=== PATIENT | female | born 1990 | race Caucasian/White ===

== ENCOUNTER 2017-09-05 12:45 | Inpatient (IN) | payer MEDICAID, SELFPAY ==
[2017-09-05 12:45] VITALS: BP 118/74; PULSE 129; RESP 16; TEMP 36.7; O2SAT 96; BMI 21.2
[2017-09-05] MEDS: LORazepam 2 MG/ML Syringe 0.5 MG IV (13:20)
[2017-09-05] MEDS: 0.9% Normal Saline 1,000 ML 1000 ML IV (13:20)
[2017-09-05] MEDS: Ondansetron 4 MG/2 ML Vial IV (13:20)
[2017-09-05 13:42] LABS: Absolute Lymphocyte Count 1.17 X10^3/ul (0.83-4.51); Absolute Neutrophil Count 7.4 X10^3/uL (2.0-7.7); Basophil# 0.01 X10^3/uL; Basophil% 0.1 % (0-1); Hematocrit 49.6 % (37-47); Hemoglobin 16.6 g/dl (12.0-15.0); Lymphocyte # 1.17 X10^3/ul (4.0); Lymphocyte % 12.4 % (19-41); Mean Corp Hgb Conc 33.5 g/gl (32-36); Mean Corpuscular Hgb 28.2 pg (27.0-32.0); Mean Corpuscular Volume 84.2 fL (81-99); Mean Platelet Vol. 10.4 fl (6.2-12.0); Monocyte# 0.87 X10^3/uL; Monocyte% 9.2 % (0-10); Neutrophil # 7.41 X10^3/uL (2.7-7.7); Neutrophil % 78.2 % (47-70); Platelet Count 345 K/mm3 (150-450); RBC Distribution Width CV 12.9 % (11.6-14.6); RBC Distribution Width SD 39.4 fl (35.1-43.9); Red Blood Count 5.89 M/mm3 (4.2-5.4); White Blood Count 9.5 K/mm3 (4.4-11.0)
[2017-09-05 13:47] LABS: POSITIVE COUNT NO; POSITIVE DIFFERENTIAL NO; POSITIVE MORPHOLOGY NO
[2017-09-05 13:57] LABS: BUN 28 mg/dL (7-18); Estimated Creatinine Clearance 49.49 ml/min; Glucose 135 mg/dL (74-106)
[2017-09-05 13:58] LABS: AST(SGOT) 12 U/L (15-37); Alanine Aminotransfer ALT/SGPT 21 U/L (13-56); Albumin, Serum 5.4 g/dL (3.2-5.0); Alkaline Phosphatase 85 U/L (45-117); Anion Gap 12 (5-15); Bilirubin, Direct 0.18 mg/dL (0.00-0.30); Calcium,Total 10.5 mg/dL (8.5-10.1); Chloride 99 mmol/L (98-107); EST Glomerular Filtration Rate 47 mL/min (>60); Est Glom Filt Rate - Afr Amer 57 mL/min (>60); Globulin 4.4 g/dL (2.2-4.2); Potassium 3.4 mmol/L (3.5-5.1); Protein, Total 9.8 g/dL (6.4-8.2); Sodium Level 142 mmol/L (136-145)
--- NOTE | 2017-09-05 14:00 | ED.DCSUM_ITS ---
- ER Visit Summary Date of Service: 09/05/17 Chief Complaint: Withdrawal from opiates, requesting detox History of Present Illness: The patient is a 27 F with a history of heroin and narcotic abuse. Patient reports last 3 years she has used heroin. She describes snorting the heroin but no injection. She does use daily. Prior to heroin use she had used Vicodin and Percocet for 2 years. Patient states her last drug use was 4 days ago. She is requesting help with detox complaining of generalized body aches, shaking, nausea, and vomiting. She is restless and unable to sleep. Patient has made multiple phone calls to try to get onto Suboxone. She is an appointment with [facility] in 2 weeks. Physical Examination: Blood pressure is 118/74, temperature 98.1, heart rate 129 , respiratory rate 16, pulse ox 96% on room air. Head neck examination is grossly unremarkable. Heart is tachycardic and regular. Lung sounds are clear. Abdomen is soft with no focal tenderness. She has hypoactive bowel sounds. Neuro exam does reveal mild tremor noted to her hands. She is anxious and restless. Test Results: CBC was normal white count with a hemoglobin of 16.6. Chemistry studies were potassium 3.4 with a BUN of 28 creatinine 1.40. test is negative. LFTs are normal. Emergency Department Course and Treatment: CINA score is calculated after my initial evaluation. Initial score is 17. Patient is given IV fluids, Zofran, and 0.5 mg of IV Ativan. On repeat evaluation patient's resting calmly. Nausea is improved but she is still nauseated. She is given a dose of Phenergan. Hospitalist was contacted for admission. Treatment Plan: [] Disposition: Admit Impression: Heroin withdrawal This note was generated with [employer] dictation software. It may contain incorrect words, spelling, and punctuation that were not noted in review of the chart prior to signing ED Disposition - Plan for ED Patient: Chief Complaint: Subst Abuse
[2017-09-05 14:17] LABS: Pregnancy, Serum, hCG Quali. NEGATIVE Negative (0-9 Nonpreg)
[2017-09-05 15:59] VITALS: BP 132/93; PULSE 99; RESP 18; O2SAT 98
[2017-09-05] MEDS: proMETHazine 25 MG/ML Syringe 6.25 MG IV (15:59)
[2017-09-05] MEDS: 0.9% Normal Saline 1,000 ML 150 ML IV (15:59)
[2017-09-05 16:49] VITALS: BMI 19.5
[2017-09-05 16:51] VITALS: BP 139/80; PULSE 102; RESP 18; TEMP 36.8; O2SAT 100
[2017-09-05 16:55] VITALS: BMI 19.5
[2017-09-05] MEDS: Methocarbamol 750 MG Tablet PO (17:01)
[2017-09-05] MEDS: cloNIDine HCl 0.1 MG Tablet PO (17:01)
[2017-09-05] MEDS: Buprenorphine HCl 2 MG TAB.SUBL SL (17:01)
[2017-09-05] MEDS: Pramipexole Di-HCl 0.25 MG Tablet PO (17:01)
[2017-09-05] MEDS: Ibuprofen 600 MG Tablet PO (17:01)
[2017-09-05 17:05] VITALS: BP 139/80; PULSE 102; RESP 18; TEMP 36.8
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
[2017-09-05 22:10] VITALS: BP 126/73; PULSE 97; RESP 20; TEMP 37.3; O2SAT 97
[2017-09-05] MEDS: Ondansetron ODT 4 MG Tablet PO (22:25)
[2017-09-05] MEDS: Acetaminophen 500 MG Tablet PO (22:25)
[2017-09-05] MEDS: chlordiazePOXIDE 25 MG Capsule PO (22:25)
--- NOTE | 2017-09-05 22:50 | NURSING ---
meal provided to pt
[2017-09-06] VITALS (9 sets, daily range): BP systolic 102–128; BP diastolic 63–78; PULSE 76–98; RESP 15–20; TEMP 36.7–36.9; O2SAT 100
[2017-09-06] MEDS: Methocarbamol 750 MG Tablet PO ×2 (02:07→23:40)
[2017-09-06] MEDS: Buprenorphine HCl 2 MG TAB.SUBL SL ×3 (02:07→17:25)
[2017-09-06] MEDS: Ibuprofen 600 MG Tablet PO (02:07)
[2017-09-06] MEDS: Ondansetron ODT 4 MG Tablet PO (10:07)
[2017-09-06] MEDS: 0.9% Normal Saline 1,000 ML 150 ML IV ×2 (11:03→18:49)
[2017-09-06] MEDS: 0.9% NaCl Peripheral Flush Adult/Peds IV (11:54)
[2017-09-06] MEDS: LORazepam 2 MG/ML Syringe 0.5 MG IV (11:54)
--- NOTE | 2017-09-06 12:15 | PCM.PROGNOTE ---
Patient Problems: Active and Suspected Problems Opiate withdrawal (Acute) Subjective: Patient seen and examined. States she has been vomiting all morning and is unable to keep anything down. Complains of insomnia and states she has not slept more than a few hours in 4 days. Complains of anxiety and general malaise. Denies diarrhea, abdominal cramping. Denies other complaints. - Physical Exam General: Alert, Oriented x3, Cooperative HEENT: Atraumatic, PERRLA, EOMI, Normocephalic Neck: Supple, No JVD, Negative Carotid Bruits Lungs: Clear to auscultation, Normal air movement Cardiovascular: Regular rate, Regular Rhythm, Normal S1, Normal S2, No murmurs Abdomen: Bowel Sounds Present, Soft, Non Tender Extremities: No clubbing, No cyanosis, No edema, Capillary Refill Less than 3 Seconds Skin: No rashes, No breakdown Musculoskeletal: No Tenderness to Palpation of Joints or Extremities Neurological: Cranial nerves II-XII grossly intact, Neuro grossly intact Psych/Mental Status: Normal Affect, Appropriate Vital Signs Temp Pulse Resp BP Pulse Ox 98.5 F 91 18 114/68 100 09/06/17 10:09/06/17 10:09/06/17 10:09/06/17 10:09/06/17 08:43 Oxygen Delivery Method Room Air Weight: 49.895 kg Body Mass Index (BMI) 19.5 Intake and Output for Last 24 Hours 09/04/17 09/05/17 09/06/17 23:59 23:59 23:59 Intake Total 2813 / 2813 Output Total 500 / 500 Balance 2313 / 2313 Medical Necessity - Tobacco Use Smoking Status: Never smoker Assessment/Plan Active and Suspected Problems Opiate withdrawal (Acute) 1. Acute opiate withdrawal-medical stabilization per protocol. Continue IV fluids given continued emesis. Continue Zofran as needed for nausea. Increase Librium to 50 mg nightly to help with sleep. Will consult Dr. Darnell Thursday to assess if patient can receive Suboxone earlier than previously scheduled. 2. Acute kidney injury-secondary to dehydration from nausea, vomiting. IV fluids as noted above. Monitor BMP. 3. Asthma-no acute exacerbation. DVT prophylaxis-not indicated due to low risk. This patient was seen by BETTY Lira under the supervision of Dr. Pardo.
[2017-09-06] MEDS: chlordiazePOXIDE 25 MG Capsule 50 MG PO (21:24)
[2017-09-07] MEDS: Buprenorphine HCl 2 MG TAB.SUBL SL ×3 (01:39→21:09)
[2017-09-07] MEDS: 0.9% Normal Saline 1,000 ML 150 ML IV (01:39)
[2017-09-07 01:40] VITALS: BP 111/71; PULSE 76; RESP 15; TEMP 36.4
[2017-09-07] MEDS: cloNIDine HCl 0.1 MG Tablet PO ×3 (01:53→19:56)
[2017-09-07 04:00] VITALS: RESP 15
[2017-09-07 06:00] VITALS: BP 107/67; PULSE 77; RESP 15; TEMP 36.4
[2017-09-07 06:26] LABS: Anion Gap 7 (5-15); BUN 11 mg/dL (7-18); Calcium,Total 7.9 mg/dL (8.5-10.1); Chloride 108 mmol/L (98-107); Creatinine, Serum 0.69 mg/dL (0.55-1.02); EST Glomerular Filtration Rate 108 mL/min (>60); Est Glom Filt Rate - Afr Amer 130 mL/min (>60); Estimated Creatinine Clearance 95.61 ml/min; Glucose 90 mg/dL (74-106); Potassium 4.6 mmol/L (3.5-5.1); Sodium Level 142 mmol/L (136-145)
[2017-09-07 09:17] VITALS: BP 108/67; PULSE 85; RESP 18; TEMP 36.7
[2017-09-07] MEDS: chlordiazePOXIDE 25 MG Capsule PO (09:21)
[2017-09-07] MEDS: Pramipexole Di-HCl 0.25 MG Tablet PO (09:21)
--- NOTE | 2017-09-07 09:47 | PCM.PROGNOTE ---
<Monse Holland - Last Filed: 09/07/17 09:50> Patient Problems: Active and Suspected Problems Opiate withdrawal (Acute) Subjective: Patient seen and examined. States nausea, vomiting has improved. Able to tolerate regular diet. States she is still not sleeping well and only sleeps a few hours at a time. Complains of diaphoresis this morning. Denies other complaints. - Physical Exam General: Alert, Oriented x3, Cooperative, No apparent distress HEENT: Atraumatic, PERRLA, EOMI, Normocephalic Neck: Supple, No JVD, Negative Carotid Bruits Lungs: Clear to auscultation, Normal air movement Cardiovascular: Regular rate, Regular Rhythm, Normal S1, Normal S2, No murmurs Abdomen: Bowel Sounds Present, Soft, Non Tender, Non-Distended Extremities: No clubbing, No cyanosis, No edema, Capillary Refill Less than 3 Seconds Skin: No rashes, No breakdown Musculoskeletal: No Tenderness to Palpation of Joints or Extremities Neurological: Cranial nerves II-XII grossly intact, Neuro grossly intact Psych/Mental Status: Normal Affect, Appropriate Vital Signs Temp Pulse Resp BP Pulse Ox 98.1 F 85 18 108/67 100 09/07/17 09:17 09/07/17 09:17 09/07/17 09:17 09/07/17 09:17 09/06/17 15:01 Oxygen Delivery Method Room Air Weight: 49.895 kg Body Mass Index (BMI) 19.5 Intake and Output for Last 24 Hours 09/05/17 09/06/17 09/07/17 23:59 23:59 23:59 Intake Total 3780 / 3780 1250 / 1250 Output Total 500 / 500 Balance 3280 / 3280 1250 / 1250 Laboratory Tests Past 24 Hrs 09/07/17 05:40 Sodium 142 Potassium 4.6 Chloride 108 H Carbon Dioxide 27.0 Anion Gap 7 BUN 11 Creatinine 0.69 Estim Creat Clear Calc 95.61 Est GFR (MDRD) Af Amer 130 Est GFR (MDRD) Non-Af 108 BUN/Creatinine Ratio 16.0 Glucose 90 Calcium 7.9 L Medical Necessity - Tobacco Use Smoking Status: Never smoker Assessment/Plan Active and Suspected Problems Opiate withdrawal (Acute) 1. Acute opiate withdrawal-medical stabilization per protocol with Subutex and Librium as needed. Continue Zofran as needed for nausea. Patient is stable at this time. She wishes to receive Suboxone at discharge. Further follow-up by [facility]. 2. Acute kidney injury-secondary to dehydration from nausea, vomiting. Resolved with IV fluids. Fluids discontinued. 3. Asthma-no acute exacerbation. DVT prophylaxis-not indicated due to low risk. This patient was seen by BETTY Lira under the supervision of Dr. Dr. Curry. <Tracey Curry - Last Filed: 09/07/17 13:51> - Physical Exam Vital Signs Temp Pulse Resp BP Pulse Ox 98.3 F 89 18 99/52 L 100 09/07/17 13:21 09/07/17 13:21 09/07/17 13:21 09/07/17 13:21 09/06/17 15:01 Oxygen Delivery Method Room Air Weight: 49.895 kg Body Mass Index (BMI) 19.5 Intake and Output for Last 24 Hours 09/05/17 09/06/17 09/07/17 23:59 23:59 23:59 Intake Total 3780 / 3780 1250 / 1250 Output Total 500 / 500 Balance 3280 / 3280 1250 / 1250 Laboratory Tests Past 24 Hrs 09/07/17 05:40 Sodium 142 Potassium 4.6 Chloride 108 H Carbon Dioxide 27.0 Anion Gap 7 BUN 11 Creatinine 0.69 Estim Creat Clear Calc 95.61 Est GFR (MDRD) Af Amer 130 Est GFR (MDRD) Non-Af 108 BUN/Creatinine Ratio 16.0 Glucose 90 Calcium 7.9 L Assessment/Plan Patient was seen and examined independently. Agree with the interval history, physical exam, and assessment and plan as documented above by the nurse practitioner, Monse Holland. Patient feels improved. Still has some nausea but no vomiting. Complains of lack of sleep. Denies any fever or chills or tremors or diarrhea. Feels some hot and cold flashes. Vitals reviewed stable. Physical exam is unremarkable as above. Labs reviewed and showed resolved OBED We will continue management per the [facility] protocol. Code Visit Inpatient E&M: 20329 Subs Hosp L2
[2017-09-07 13:21] VITALS: BP 99/52; PULSE 89; RESP 18; TEMP 36.8
[2017-09-07 19:54] VITALS: BP 104/67; PULSE 101; RESP 16; TEMP 36.6
[2017-09-08] MEDS: Pramipexole Di-HCl 0.25 MG Tablet PO (00:48)
[2017-09-08] MEDS: chlordiazePOXIDE 25 MG Capsule PO (00:48)
[2017-09-08 00:55] VITALS: BP 95/62; PULSE 66; RESP 16; TEMP 36.6
[2017-09-08 05:30] VITALS: BP 108/62; PULSE 93; RESP 16; TEMP 36.6
[2017-09-08] MEDS: cloNIDine HCl 0.1 MG Tablet PO (05:31)
[2017-09-08] MEDS: Ibuprofen 600 MG Tablet PO (05:32)
--- NOTE | 2017-09-08 08:16 | PCM.DC ---
- Discharge Diagnoses Current Active Problems: Current Active and Chronic Problems Opiate withdrawal (Acute) Asthma (Chronic) Anxiety (Chronic) Depression (Chronic) Reason(s) for Visit for Discharge Instructions: Opiate withdrawal You will use the following diet at home:: Regular Your food should be the consistency of: Regular Your liquids should be the consistency of: Regular/Thin Discharge Activity: Return to Normal Activity Allergies/Adverse Reactions: Allergies No Known Allergies Allergy (Verified 11/09/15 18:34) Medications to take at Discharge Albuterol Inhaler [Ventolin Hfa] 1 - 2 puff INHALATION Q4H PRN PRN #1 inhaler 11/09/15 Primary Care Physician: Mir Leonard MD [Primary Care Provider] - Please follow up with your Primary Care Physician in: within 2 weeks Proposed Discharge Date: 09/08/17
--- NOTE | 2017-09-08 09:10 | PCM.DC.SUM ---
Discharge Date and Diagnosis Date of Admission: 09/05/17 Date of Discharge: 09/08/17 - Primary Discharge Diagnosis Active and Suspected Problems 1. Acute opiate withdrawal 2. Acute kidney injury-secondary to nausea, vomiting as a result of #1 - Secondary Discharge Diagnosis Chronic Problems Asthma (Chronic) Anxiety (Chronic) Depression (Chronic) Hospital Course and Treatment Operations: None Procedures: None Summary of Care Provided: Patient is a 27-year-old female admitted 09/05/2017 due to opiate withdrawal. Her past medical history includes asthma, anxiety, depression. 1. Acute opiate withdrawal-medical stabilization per protocol with Subutex and Librium as needed. Patient is stable. Plan for outpatient counseling and Suboxone as outpatient at discharge. 2. Acute kidney injury-secondary to dehydration from nausea, vomiting. Resolved with IV fluids. 3. Asthma-no acute exacerbation. General: Alert, Oriented x3, Cooperative, No apparent distress HEENT: Atraumatic, PERRLA, EOMI, Normocephalic Neck: Supple, No JVD, Negative Carotid Bruits Lungs: Clear to auscultation, Normal air movement Cardiovascular: Regular rate, Regular Rhythm, Normal S1, Normal S2, No murmurs Abdomen: Bowel Sounds Present, Soft, Non Tender, Non-Distended Extremities: No clubbing, No cyanosis, No edema, Capillary Refill Less than 3 Seconds Skin: No rashes, No breakdown Musculoskeletal: No Tenderness to Palpation of Joints or Extremities Neurological: Cranial nerves II-XII grossly intact, Neuro grossly intact Psych/Mental Status: Normal Affect, Appropriate Patient seen and examined prior to discharge. Physical assessment as noted above. Patient is stable for discharge with continued outpatient follow-up. This patient was seen by BETTY Lira under the supervision of Dr. Dr. Curry. Discharge Diet: No Restrictions Discharge Activity: Return to Normal Activity Home Medications: Medications to take at Discharge Albuterol Inhaler [Ventolin Hfa] 1 - 2 puff INHALATION Q4H PRN PRN #1 inhaler 11/09/15 Primary Care Physician: Mir Leonard MD [Primary Care Provider] - Please follow up with your Primary Care Physician in: within 2 weeks Disposition: Home Minutes spent on discharge:: 35 Patient Condition:: Stable Medical Necessity - Tobacco Use Smoking Status: Never smoker Meaningful Use Info Meaningful Use Diagnoses (Choose all that apply): None applicable
[2017-09-08 09:55] VITALS: BP 85/51; PULSE 72; RESP 18; TEMP 36.4
[2017-09-08] MEDS: Buprenorphine HCl 2 MG TAB.SUBL SL (09:57)
== END 2017-09-08 14:11 | disposition home or self-care (01) | DRG 434 ==
LOC: ED 13:57 → MS2 16:01
PROVIDERS: Nurse Practitioner Family; Admitting Provider Internal Medicine; Emergency Provider Emergency Medicine; Family Provider Family Medicine; PCP Family Medicine; Visit Provider Internal Medicine
DX: F11.23 Opioid dependence with withdrawal (principal); E86.0 Dehydration; N17.9 Acute kidney failure, unspecified; F32.9 Major depressive disorder, single episode, unspecified; R11.2 Nausea with vomiting, unspecified; F41.9 Anxiety disorder, unspecified; J45.909 Unspecified asthma, uncomplicated; Z87.891 Personal history of nicotine dependence
CPT/HCPCS: 36415; 80048; 80076; 84703; 85025; 99284; J7030; A4216; J2405

== ENCOUNTER 2018-05-29 10:17 | Observation (INO) | payer MEDICAID, SELFPAY ==
[2018-05-29 10:19] VITALS: BP 139/86; PULSE 89; RESP 16; TEMP 36.4; O2SAT 99; BMI 20.5
[2018-05-29] MEDS: 0.9% Normal Saline 1,000 ML 999 ML IV (10:56)
[2018-05-29] MEDS: proMETHazine 25 MG/ML Syringe 12.5 MG IV (10:57)
[2018-05-29 11:14] LABS: Absolute Lymphocyte Count 1.94 X10^3/ul (0.83-4.51); Absolute Neutrophil Count 4.5 X10^3/uL (2.0-7.7); Basophil# 0.02 X10^3/uL; Basophil% 0.3 % (0-1); Eosinophil# 0.03 X10^3/uL; Eosinophils% 0.4 % (0-5); Hematocrit 40.1 % (37-47); Hemoglobin 12.9 g/dl (12.0-15.0); Lymphocyte # 1.94 X10^3/ul (4.0); Lymphocyte % 26.9 % (19-41); Mean Corp Hgb Conc 32.2 g/gl (32-36); Mean Corpuscular Hgb 27.9 pg (27.0-32.0); Mean Corpuscular Volume 86.6 fL (81-99); Mean Platelet Vol. 10.1 fl (6.2-12.0); Monocyte# 0.69 X10^3/uL; Monocyte% 9.6 % (0-10); Neutrophil # 4.52 X10^3/uL (2.7-7.7); Neutrophil % 62.7 % (47-70); Platelet Count 253 K/mm3 (150-450); RBC Distribution Width CV 13.3 % (11.6-14.6); RBC Distribution Width SD 42.3 fl (35.1-43.9); Red Blood Count 4.63 M/mm3 (4.2-5.4); White Blood Count 7.2 K/mm3 (4.4-11.0)
[2018-05-29 11:15] LABS: POSITIVE COUNT NO; POSITIVE DIFFERENTIAL NO; POSITIVE MORPHOLOGY NO
[2018-05-29] MEDS: LORazepam 2 MG/ML Syringe 1 MG IV (11:23)
[2018-05-29 11:29] LABS: Amphetamine Urine VISTA NEGATIVE (<1000 ng/mL); Barbiturate Urine VISTA NEGATIVE (< 200 ng/mL); Benzodiazepine Urine VISTA NEGATIVE (< 200 ng/mL); Cocaine Urine VISTA NEGATIVE (< 300 ng/mL); Ecstacy Urine VISTA NEGATIVE (< 500 ng/mL); Methadone Urine VISTA NEGATIVE (< 300 ng/mL); PCP Urine VISTA NEGATIVE (< 25 ng/mL); THC Urine VISTA NEGATIVE (< 50 ng/mL); Vista UDS pH Range 6
[2018-05-29 11:29] LABS: Anion Gap 8 (5-15); BUN 10 mg/dL (7-18); BUN/Creat Ratio 12.9 RATIO (10-20); Calcium,Total 8.3 mg/dL (8.5-10.1); Chloride 108 mmol/L (98-107); Creatinine, Serum 0.78 mg/dL (0.55-1.02); EST Glomerular Filtration Rate 93 mL/min (>60); Est Glom Filt Rate - Afr Amer 113 mL/min (>60); Estimated Creatinine Clearance 91.45 ml/min; Glucose 87 mg/dL (74-106); Sodium Level 144 mmol/L (136-145)
[2018-05-29 11:37] LABS: Pregnancy, Serum, hCG Quali. NEGATIVE Negative (0-9 Nonpreg)
--- NOTE | 2018-05-29 12:45 | ED.VISSUMM ---
- ER Visit Summary Date of Service: 05/29/18 Chief Complaint: [Heroin withdrawal] History of Present Illness: The patient is a 28 F [presents the emergency department with complaint of heroin withdrawal. Patient states she last used yesterday. Patient would like to be admitted for detox. Patient spoke to [facility] and they told her to come to the emergency department to be admitted. Patient has gone through a 3-day in program here about 3 months ago. Patient complains currently of chills and vomiting throughout the night. Patient complains of body aches and feeling shaky. Patient had hot and cold flashes.] Physical Examination: HEENT-PERRLA, EOMI. Cranial nerves II through XII grossly intact. TMs clear. Mucous membranes moist. No adenopathy. Cardiovascular-regular rate and rhythm without murmur or ectopy Lungs-clear to auscultation, chest wall stable without crepitus or subcu emphysema Abdomen-normoactive bowel sounds, soft, nontender, no rebound or rigidity, no peritoneal signs. Extremities-intact ?4, normal range of motion, normal pulses, atraumatic] Test Results: [CBC with differential count 7.2, hemoglobin 12.9, hematocrit 40, placed 253. Chemistry is unremarkable other than a slightly depressed potassium of 3.0 for which I did write her for 40 mEq of potassium chloride p.o. Tox screen was negative and alcohol was 7.0. Patient had a score of 22 on the CIWA AR score.] Emergency Department Course and Treatment: [Case discussed with hospitalist will evaluate patient for admission] Treatment Plan: [Admit for detox from heroin] Disposition: [Admit] Impression: [Heroin withdrawal] This note was generated with [employer] dictation software. It may contain incorrect words, spelling, and punctuation that were not noted in review of the chart prior to signing ED Disposition - Plan for ED Patient: Chief Complaint: Substance Abuse Referrals: Mir Leonard MD [Primary Care Provider] -
--- NOTE | 2018-05-29 12:47 | PCM.HP.STD ---
Problem List (1) Opiate withdrawal Status: Acute (2) Anxiety Status: Chronic (3) Asthma Status: Chronic (4) Depression Status: Chronic History of Present Illness Date of Admission: 05/29/18 Chief Complaint: Heroin withdrawal symptoms The patient is a 28 year old F with history of chronic heroin use through snorting, last admission in August 2017, recurrent relapse came to ED with symptoms of withdrawal for 1 day. Patient lost to use was yesterday; which is 1/2-2 g daily. She denies IV use. After she was discharged in August, she was on Suboxone from outpatient rehab until October 2017 after she quit and relapsed. She stopped heroin in March and was sober until May 13 and again relapsed. Her withdrawal symptoms include feeling of anxiety, restlessness, hot and cold flashes, shivering, body aches and muscle pain and loose bowel movement. He also has nausea and vomiting. [] Past Medical History Past Medical History (Chronic Problems): Chronic Problems Asthma (Chronic) Anxiety (Chronic) Depression (Chronic) Allergies No Known Allergies Allergy (Verified 05/29/18 10:22) Home Medications: Ambulatory Orders Medication Instructions Recorded Albuterol Inhaler [Ventolin Hfa] 1 - 2 puff INHALATION Q4H PRN PRN 11/09/15 #1 inhaler Surgical History: - - Nasal repair surgery status post broken nose ?2. 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 Smoking Status: Current every day smoker - *Family History Maternal History Items: - - Depression, anxiety Paternal History Items: - - Depression, anxiety VTE Information - Inpt Only VTE Present on Admission: No VTE Mechan Device Prophylaxis: None Reason prophylaxis not ordered:: Procedure Not Indicated - Physical Exam General: Alert, Oriented x3, Cooperative HEENT: Atraumatic, PERRLA, EOMI, Normocephalic, - - Mild redness in the nostrils Neck: Supple, No JVD, Negative Carotid Bruits, - Lungs: Clear to auscultation, Normal air movement, No rhonchi, No wheeze, No rales Cardiovascular: Regular rate, Regular Rhythm, Normal S1, Normal S2, No murmurs Abdomen: Bowel Sounds Present, Soft, Non Tender, Non-Distended Extremities: No edema, Capillary Refill Less than 3 Seconds Skin: No rashes, No breakdown Musculoskeletal: No Tenderness to Palpation of Joints or Extremities, - - Mild muscle wasting Neurological: Cranial nerves II-XII grossly intact, Deep Tendon Reflexes 2+/4 and Symmetrical, Neuro grossly intact, Motor Exam 5/5 strength throughout, - Psych/Mental Status: Anxious, Depressed, Restless Vital Signs Temp Pulse Resp BP Pulse Ox 97.5 F L 89 16 139/86 H 99 05/29/18 10:19 05/29/18 10:19 05/29/18 10:19 05/29/18 10:19 05/29/18 10:19 Weight: 120 lb Body Mass Index (BMI) 20.5 Laboratory Tests Past 24 Hrs 05/29/18 05/29/18 05/29/18 10:50 10:55 10:55 WBC 7.2 RBC 4.63 Hgb 12.9 Hct 40.1 MCV 86.6 MCH 27.9 MCHC 32.2 RDW 13.3 RDW Differential 42.3 Plt Count 253 MPV 10.1 Immature Gran % (Auto) 0.100 Neut % (Auto) 62.7 Lymph % (Auto) 26.9 [place] % (Auto) 9.6 Eos % (Auto) 0.4 Baso % (Auto) 0.3 Absolute Neuts (auto) 4.5 Absolute Lymphs (auto) 1.94 Total Counted Not Reportable Sodium 144 Potassium 3.0 L Chloride 108 H Carbon Dioxide 28.0 Anion Gap 8 BUN 10 Creatinine 0.78 Estim Creat Clear Calc 91.45 Est GFR (MDRD) Af Amer 113 Est GFR (MDRD) Non-Af 93 BUN/Creatinine Ratio 12.9 Glucose 87 Calcium 8.3 L Magnesium Total Bilirubin Direct Bilirubin AST ALT Alkaline Phosphatase Total Protein Albumin Serum , Qual Urine Opiates Screen NEGATIVE Urine Methadone Screen NEGATIVE Ur Barbiturates Screen NEGATIVE Ur Phencyclidine Scrn NEGATIVE Ur Amphetamines Screen NEGATIVE U Methamphetamin-MDMA NEGATIVE U Benzodiazepines Scrn NEGATIVE Urine Cocaine Screen NEGATIVE U Cannabinoids Screen NEGATIVE Ur Drug Screen Comment Ethyl Alcohol 05/29/18 05/29/18 05/29/18 10:55 10:55 10:55 WBC RBC Hgb Hct MCV MCH MCHC RDW RDW Differential Plt Count MPV Immature Gran % (Auto) Neut % (Auto) Lymph % (Auto) [place] % (Auto) Eos % (Auto) Baso % (Auto) Absolute Neuts (auto) Absolute Lymphs (auto) Total Counted Sodium Potassium Chloride Carbon Dioxide Anion Gap BUN Creatinine Estim Creat Clear Calc Est GFR (MDRD) Af Amer Est GFR (MDRD) Non-Af BUN/Creatinine Ratio Glucose Calcium Magnesium Pending Total Bilirubin Pending Direct Bilirubin Pending AST Pending ALT Pending Alkaline Phosphatase Pending Total Protein Pending Albumin Pending Serum , Qual NEGATIVE Urine Opiates Screen Urine Methadone Screen Ur Barbiturates Screen Ur Phencyclidine Scrn Ur Amphetamines Screen U Methamphetamin-MDMA U Benzodiazepines Scrn Urine Cocaine Screen U Cannabinoids Screen Ur Drug Screen Comment Ethyl Alcohol 7.0 Assessment/Plan All Active Problems Opiate withdrawal (Acute) The patient is a 28 year old F with history of chronic heroin use through snorting, last admission in August 2017, recurrent relapse came to ED with symptoms of withdrawal for 1 day. Patient lost to use was yesterday; which is 1/2-2 g daily. She denies IV use. After she was discharged in August, she was on Suboxone from outpatient rehab until October 2017 after she quit and relapsed. She stopped heroin in March and was sober until May 13 and again relapsed. She started using heroin at the age of 25. Denies smoking cigarettes. Uses crack cocaine a few times a day. Denies benzodiazepine use Her withdrawal symptoms include feeling of anxiety, restlessness, hot and cold flashes, shivering, body aches and muscle pain and loose bowel movement. He also has nausea and vomiting. 1. Acute opioid withdrawal with history of chronic alcohol use and dependence: Patient is being admitted on regular MedSurg floor. Labs done and significant abnormality was potassium 3.0, chloride 108. Patient is started on medication order set of [facility] for medical stabilization of opioids. 2. Crack cocaine through snorting: Stable. 3. Hypokalemia: Potassium replaced. Repeat BMP tomorrow a.m. Chronic stable asthma: Continue home albuterol inhaler. Stable. DVT prophylaxis: Low risk, early ambulation encouraged. No prophylaxis indicated Laboratory Results 05/29/18 10:50: Urine Opiates Screen NEGATIVE, Urine Methadone Screen NEGATIVE, Ur Barbiturates Screen NEGATIVE, Ur Phencyclidine Scrn NEGATIVE, Ur Amphetamines Screen NEGATIVE, U Methamphetamin-MDMA NEGATIVE, U Benzodiazepines Scrn NEGATIVE, Urine Cocaine Screen NEGATIVE, U Cannabinoids Screen NEGATIVE, Ur Drug Screen Comment 05/29/18 10:55: WBC 7.2, RBC 4.63, Hgb 12.9, Hct 40.1, MCV 86.6, MCH 27.9, MCHC 32.2, RDW 13.3, RDW Differential 42.3, Plt Count 253, MPV 10.1, Immature Gran % (Auto) 0.100, Neut % (Auto) 62.7, Lymph % (Auto) 26.9, [place] % (Auto) 9.6, Eos % (Auto) 0.4, Baso % (Auto) 0.3, Absolute Neuts (auto) 4.5, Absolute Lymphs (auto) 1.94, Total Counted Not Reportable 05/29/18 10:55: Sodium 144, Potassium 3.0 L, Chloride 108 H, Carbon Dioxide 28.0, Anion Gap 8, BUN 10, Creatinine 0.78, Estim Creat Clear Calc 91.45, Est GFR (MDRD) Af Amer 113, Est GFR (MDRD) Non-Af 93, BUN/Creatinine Ratio 12.9, Glucose 87, Calcium 8.3 L 05/29/18 10:55: Ethyl Alcohol 7.0 05/29/18 10:55: Serum , Qual NEGATIVE 05/29/18 10:55: Magnesium 2.5, Total Bilirubin 0.20, Direct Bilirubin 0.09, AST 12 L, ALT 23, Alkaline Phosphatase 56, Total Protein 7.0, Albumin 3.9, Globulin 3.1 05/29/18 10:55: PT 13.1, INR 1.0 05/29/18 10:55: Amylase 54, Lipase 228 Code Visit Inpatient E&M: 84858 Init Hosp L3
[2018-05-29 13:02] LABS: AST(SGOT) 12 U/L (15-37); Alanine Aminotransfer ALT/SGPT 23 U/L (13-56); Albumin, Serum 3.9 g/dL (3.2-5.0); Alkaline Phosphatase 56 U/L (45-117); Bilirubin, Direct 0.09 mg/dL (0.00-0.30); Globulin 3.1 g/dL (2.2-4.2); Magnesium 2.5 mg/dL (1.6-2.6)
[2018-05-29 13:20] VITALS: BMI 20.5
[2018-05-29 13:34] VITALS: BP 127/86; PULSE 72; RESP 16; TEMP 36.9
[2018-05-29 13:50] LABS: Prothrombin Time (Protime)PT. 13.1 SECONDS (11.7-14.9)
[2018-05-29 13:51] LABS: Amylase 54 U/L (25-115); Lipase 228 U/L (73-393)
[2018-05-29] MEDS: Buprenorphine HCl 2 MG TAB.SUBL SL ×2 (14:12→21:50)
[2018-05-29] MEDS: Methocarbamol 750 MG Tablet PO (14:12)
[2018-05-29] MEDS: chlordiazePOXIDE 25 MG Capsule PO ×3 (14:12→21:50)
--- NOTE | 2018-05-29 15:55 | NURSING ---
Patient stated in admission questioning that she has been experiencing nausea and vomiting. This RN left room and stated that she would be back with medications when verified by pharmacy. Then this RN walked around corner and pt in snack area with 2 containers of cereal, drinks and other snacks. Pt noted to have one empty tray by bed and states that she is waiting on a different one. Pt then asked this RN if her boyfriend could lay in the bed with her. This RN notified patient that she could not. Pt then asked if they could have the large room so that they have more space. This RN notified pt that we could not but obtained pull out bed/ chair for boyfriend. Both thanked this RN. Then pt looked at this RN and asked if 2 cans of soda and 2 cups of ice cream to be brought to them. Pt states that she called ahead to the ER and notified them that she would need a room that would have enough space for boyfriend because he was afraid that he would relapse unless he stayed here with her.
[2018-05-29 18:00] VITALS: RESP 16
[2018-05-29] MEDS: traZODone 50 MG Tablet PO (21:50)
[2018-05-29 21:55] LABS: Red Blood Cells-Urine 0 SEEN /hpf (0-5); White Blood Cells 0 SEEN /hpf (0-5)
[2018-05-29 21:56] LABS: Color, Urine Yellow (Yellow); Glucose, Dipstick Normal (Normal); Ketone-Dipstick Negative (Negative); Leukocyte Esterase-Dipstick Negative /ul (Negative); Nitrite-Dipstick Negative (Negative); Occult Blood-Urine 25 /ul (Negative); Protein-Dipstick Negative (Negative); Specific Gravity, Urine 1.015 (1.002-1.030); Urine Bilirubin Dipstick Negative (Negative); Urine Clarity Sl. Cloudy (Clear); Urine Urobilinogen Normal (Normal)
[2018-05-29 22:00] VITALS: BP 130/88; PULSE 87; RESP 16; TEMP 37
[2018-05-29 22:08] LABS: Bacteria RARE /hpf (None Seen); Calcium Oxalate Crystals Ur 1+ /hpf (<or=2+); Mucous, Urine 1+ /hpf (<or=2+); Squamous Epithelial Cells - UA 0-5 SEEN /hpf (5-10)
[2018-05-30 02:00] VITALS: BP 120/73; PULSE 107; RESP 16; TEMP 37.2
[2018-05-30] MEDS: chlordiazePOXIDE 25 MG Capsule PO ×2 (02:05→05:35)
[2018-05-30] MEDS: Buprenorphine HCl 2 MG TAB.SUBL SL (05:35)
[2018-05-30 05:37] VITALS: BP 114/76; PULSE 99; RESP 16; TEMP 36.6
[2018-05-30 07:56] LABS: Anion Gap 8 (5-15); BUN 7 mg/dL (7-18); BUN/Creat Ratio 9.2 RATIO (10-20); Calcium,Total 8.3 mg/dL (8.5-10.1); Chloride 105 mmol/L (98-107); Creatinine, Serum 0.76 mg/dL (0.55-1.02); EST Glomerular Filtration Rate 95 mL/min (>60); Est Glom Filt Rate - Afr Amer 115 mL/min (>60); Estimated Creatinine Clearance 93.97 ml/min; Glucose 92 mg/dL (74-106); Potassium 3.4 mmol/L (3.5-5.1); Sodium Level 142 mmol/L (136-145)
[2018-05-30 10:00] VITALS: BP 98/58; PULSE 92; RESP 18; TEMP 36.9
--- NOTE | 2018-05-30 11:16 | DS.PCM_ITS ---
Discharge Date and Diagnosis Date of Admission: 05/29/18 Date of Discharge: 05/30/18 - Secondary Discharge Diagnosis Chronic Problems Asthma (Chronic) Anxiety (Chronic) Depression (Chronic) Hospital Course and Treatment Operations: None Summary of Care Provided: The patient is a 28 year old F [] Objective: The patient is a 28 year old F with history of chronic heroin use through snorting, last admission in August 2017, recurrent relapse came to ED with symptoms of withdrawal for 1 day. Patient lost to use was yesterday; which is 1/2-2 g daily. She denies IV use. After she was discharged in August, she was on Suboxone from outpatient rehab until October 2017 after she quit and relapsed. She stopped heroin in March and was sober until May 13 and again relapsed. She started using heroin at the age of 25. Denies smoking cigarettes. Uses crack cocaine a few times a day. Denies benzodiazepine use. Her withdrawal symptoms include feeling of anxiety, restlessness, hot and cold flashes, shivering, body aches and muscle pain. 1. Acute opioid withdrawal with history of chronic alcohol use and dependence: Patient is being admitted on regular MedSurg floor. Labs done and significant abnormality was potassium 3.0, chloride 108. Patient was started on medication order set of [facility] for medical stabilization of opioids. Potassium improved to 3.4. Patient was given repeat K Dur. Discussed with the nursing staff. Patient had minimal AURORA score 2 and then 1 today. Her symptoms are well controlled including anxiety and hot and cold flashes. Because of long holiday, [facility] staff is not available on Thursday and probably will next available on Thursday. Patient is being discharged home. She wants to go home. 2. Crack cocaine through snorting: Stable. 3. Hypokalemia: Potassium replaced. Repeat K3.4K Dur repeated Chronic stable asthma: Continue home albuterol inhaler. Stable. DVT prophylaxis: Low risk, early ambulation encouraged. No prophylaxis indicated. Patient was admitted as inpatient but was discharged because of sooner recovery than expected. Patient is discharged home. She asked for Subutex but her request was denied. Prescription for BuSpar 5 mg 3 times daily as needed total 10 tablets was given. - Physical Exam Vital Signs Temp Pulse Resp BP Pulse Ox 98.4 F 92 18 98/58 L 99 05/30/18 10:00 05/30/18 10:00 05/30/18 10:00 05/30/18 10:00 05/29/18 10:19 Oxygen Delivery Method Room Air Weight: 120 lb 2.431 oz Body Mass Index (BMI) 20.5 Intake and Output for Last 24 Hours 05/28/18 05/29/18 05/30/18 23:59 23:59 23:59 Intake Total 800 / 800 600 / 600 Balance 800 / 800 600 / 600 Laboratory Tests Past 24 Hrs 05/29/18 05/29/18 05/29/18 10:50 10:50 10:55 PT INR Sodium 144 Potassium 3.0 L Chloride 108 H Carbon Dioxide 28.0 Anion Gap 8 BUN 10 Creatinine 0.78 Estim Creat Clear Calc 91.45 Est GFR (MDRD) Af Amer 113 Est GFR (MDRD) Non-Af 93 BUN/Creatinine Ratio 12.9 Glucose 87 Calcium 8.3 L Magnesium Total Bilirubin Direct Bilirubin AST ALT Alkaline Phosphatase Total Protein Albumin Globulin Amylase Lipase Serum , Qual Urine Color Yellow Urine Clarity Sl. Cloudy Urine pH 7.0 Ur Specific [place] 1.015 Urine Protein Negative Urine Glucose (UA) Normal Urine Ketones Negative Urine Occult Blood 25 H Urine Nitrite Negative Urine Bilirubin Negative Urine Urobilinogen Normal Ur Leukocyte Esterase Negative Urine RBC 0 SEEN Urine WBC 0 SEEN Ur Squamous Epith Cells 0-5 SEEN Calcium Oxalate Crystal 1+ Urine Bacteria RARE Urine Mucus 1+ Urine Opiates Screen NEGATIVE Urine Methadone Screen NEGATIVE Ur Barbiturates Screen NEGATIVE Ur Phencyclidine Scrn NEGATIVE Ur Amphetamines Screen NEGATIVE U Methamphetamin-MDMA NEGATIVE U Benzodiazepines Scrn NEGATIVE Urine Cocaine Screen NEGATIVE U Cannabinoids Screen NEGATIVE Ethyl Alcohol 05/29/18 05/29/18 05/29/18 10:55 10:55 10:55 PT INR Sodium Potassium Chloride Carbon Dioxide Anion Gap BUN Creatinine Estim Creat Clear Calc Est GFR (MDRD) Af Amer Est GFR (MDRD) Non-Af BUN/Creatinine Ratio Glucose Calcium Magnesium 2.5 Total Bilirubin 0.20 Direct Bilirubin 0.09 AST 12 L ALT 23 Alkaline Phosphatase 56 Total Protein 7.0 Albumin 3.9 Globulin 3.1 Amylase Lipase Serum , Qual NEGATIVE Urine Color Urine Clarity Urine pH Ur Specific [place] Urine Protein Urine Glucose (UA) Urine Ketones Urine Occult Blood Urine Nitrite Urine Bilirubin Urine Urobilinogen Ur Leukocyte Esterase Urine RBC Urine WBC Ur Squamous Epith Cells Calcium Oxalate Crystal Urine Bacteria Urine Mucus Urine Opiates Screen Urine Methadone Screen Ur Barbiturates Screen Ur Phencyclidine Scrn Ur Amphetamines Screen U Methamphetamin-MDMA U Benzodiazepines Scrn Urine Cocaine Screen U Cannabinoids Screen Ethyl Alcohol 7.0 05/29/18 05/29/18 05/30/18 10:55 10:55 07:22 PT 13.1 INR 1.0 Sodium 142 Potassium 3.4 L Chloride 105 Carbon Dioxide 29.0 Anion Gap 8 BUN 7 Creatinine 0.76 Estim Creat Clear Calc 93.97 Est GFR (MDRD) Af Amer 115 Est GFR (MDRD) Non-Af 95 BUN/Creatinine Ratio 9.2 L Glucose 92 Calcium 8.3 L Magnesium Total Bilirubin Direct Bilirubin AST ALT Alkaline Phosphatase Total Protein Albumin Globulin Amylase 54 Lipase 228 Serum , Qual Urine Color Urine Clarity Urine pH Ur Specific [place] Urine Protein Urine Glucose (UA) Urine Ketones Urine Occult Blood Urine Nitrite Urine Bilirubin Urine Urobilinogen Ur Leukocyte Esterase Urine RBC Urine WBC Ur Squamous Epith Cells Calcium Oxalate Crystal Urine Bacteria Urine Mucus Urine Opiates Screen Urine Methadone Screen Ur Barbiturates Screen Ur Phencyclidine Scrn Ur Amphetamines Screen U Methamphetamin-MDMA U Benzodiazepines Scrn Urine Cocaine Screen U Cannabinoids Screen Ethyl Alcohol Discharge Activity: May Not Drive Call your doctor if you observe: Fever of 101 or Higher, Shortness of breath, Fainting spells, Chest pain, Increased palpitations (irregular heartbeat), Calf discomfort Home Medications: Medications to take at Discharge Albuterol Inhaler [Ventolin Hfa] 1 - 2 puff INHALATION Q4H PRN PRN #1 inhaler 11/09/15 busPIRone [Buspar] 5 mg PO TID PRN PRN #10 tab 05/30/18 Following Prescrptions Were Given to Patient: busPIRone [Buspar] 5 mg PO TID PRN PRN #10 tab PRN Reason: Anxiety Primary Care Physician: Mir Leonard MD [Primary Care Provider] - Please follow up with your Primary Care Physician in: in 1 week Patient Instructions: Buspirone Hydrochloride Oral tablet Medical Necessity - Tobacco Use Smoking Status: Current every day smoker Meaningful Use Info Meaningful Use Diagnoses (Choose all that apply): None applicable Code Visit Inpatient E&M: 24169 [facility] Hosp
--- NOTE | 2018-05-30 11:16 | DCINST_ITS ---
You will use the following diet at home:: Regular Your food should be the consistency of: Regular Discharge Activity: May Not Drive Call your doctor if you observe: Fever of 101 or Higher, Shortness of breath, Fainting spells, Chest pain, Increased palpitations (irregular heartbeat), Calf discomfort Additional Instructions: F/U [facility] outpatient rehab after Carmela on 06/02/18 Allergies/Adverse Reactions: Allergies No Known Allergies Allergy (Verified 05/29/18 10:22) Medications to take at Discharge Albuterol Inhaler [Ventolin Hfa] 1 - 2 puff INHALATION Q4H PRN PRN #1 inhaler 11/09/15 Primary Care Physician: Mir Leonard MD [Primary Care Provider] - Please follow up with your Primary Care Physician in: in 1 week Test Results: Test results from this visit will be discussed in further detail at your follow- up appointment, if applicable.
--- NOTE | 2018-05-30 11:17 | NURSING ---
Shaggy spoke with nursing and state that they are going to stop bringing all of the food ordered by pt because it is excessive. Shaggy notified that patient and boyfriend are staying in room and patient is ordering food for her and the boyfriend to eat while here. Pt. has had a very big appetite and though complains of nausea and vomiting- no symptoms have been visualized or noticed by staff. Pt. slept all night long and in fact is still sleeping at this time. Withdrawal scale 0/10, patient tox screen tested negative although pt reported snorting heroin. Notified pt that tox screen was negative yesterday and she stated, well maybe it wasn't enough to show up, pt reported that last use was 05/28 at 1700- not even 24hrs after use. Only PRN medication given was methocarbamol on admission for c/o pain- has not complained of since that time. Dr. Junior notified of continued low withdrawal scale and negative tox screen. Dr. Junior states he will come assess patient and decide at that time.
--- NOTE | 2018-05-30 12:23 | NURSING ---
in to see patient with this RN. Notified pt that her withdrawal scale was minimal on admission and that there have been no changes- pt verbalized understanding and denied further needs. left unit- patient out to nurses' station and became tearful and asked this RN if she could have 1 more dose of subutex before leaving. Educated pt that her withdrawal scores have been minimal since admission and that no medication for withdrawal are to be given. Patient became tearful and stated that, I will not lie to you, I have an appointment scheduled for a suboxone clinic on thursday and I am afraid of relapsing. This RN asked pt for number and states that we will call facility to make sure they are aware of pt being here. Pt began stammering and stated that there is no need to call because it is through a friend of her boyfriends. pt then changed topic an asked if Ativan could be given- this RN notified pt that ativan is an addictive medication and will not be prescribed by our physicians after detox for heroin. Patient then asked if she could have medication to stop the cravings. This RN inquired as to what cravings meant- is it anxiety? pt then asked for medication for anxiety and to help with sleep. Dr. Junior notified and arrived on unit at this time to see what medication he can provided. Patient found in room with meal from dietary and a meal warmed up from freezer- so that boyfriend could have food. Pt states will be leaving after discharge.
--- NOTE | 2018-05-30 12:48 | NURSING ---
pt states her mom will be here between 1400 and 1430- states they will leave at that time.
[2018-05-30 14:00] VITALS: RESP 18
== END 2018-05-30 14:49 | disposition home or self-care (01) ==
LOC: ED 11:25 → MS2 13:03
PROVIDERS: Admitting Provider Internal Medicine; Emergency Provider Emergency Medicine; Family Provider Family Medicine; PCP Family Medicine; Visit Provider Internal Medicine
DX: F11.23 Opioid dependence with withdrawal (principal); J45.909 Unspecified asthma, uncomplicated; F17.200 Nicotine dependence, unspecified, uncomplicated; E87.6 Hypokalemia
CPT/HCPCS: 36415; 80048; 80076; 80307; 80320; 81001; 82150; 83690; 83735; 84703; 85025; 85610; 96374; 96375; 99218; 99281; J7030; G0378; G0480